=== PATIENT | male | born 1955 | race Caucasian/White ===

== ENCOUNTER 2016-11-01 06:00 | Inpatient (IN) | payer BC ==
[2016-09-29 13:52] VITALS: BMI 29.0
--- NOTE | 2016-09-29 14:35 | PAT Medication Instructions ---
Service Date Sep 29, 2016. Current Home Medication List Ibuprofen Tab (Advil), 200-600 MG PO QWEEK Medication Instructions For Your Scheduled Surgery - Hold the following medications the morning of surgery: Ibuprofen Tab (Advil), 200-600 MG PO QWEEK (not told to stop by surgeon- only takes occasionally) If you have any questions please call us at [phone] or [phone] ( Radha) or [phone]
--- NOTE | 2016-09-29 15:32 | DIAGNOSTIC IMAGING REPORT ---
CHEST 2 VIEWS ROUTINE HISTORY: Preop. COMPARISON: Chest 04/22/2015. FINDINGS: The lungs are clear. Cardiac silhouette is normal in size. No pleural effusions. No pneumothorax. IMPRESSION: No acute process. Electronically signed by: Sandoval Sun M.D. 09/29/2016 3:30 PM Dictated Date/Time: 09/29/2016 3:29 PM
[2016-09-29 15:58] LABS: BASO % 0.3 %; BASO ABS # 0.02 K/uL (0-0.2); COMPLETE YES; EOS % 1.9 %; HEMATOCRIT 44.1 % (42-52); IG% 0.2 %; LYMPH % 36.1 %; LYMPH ABS # 2.07 K/uL (1.2-3.4); MEAN CORPUSCULAR HEMOGLOBIN 30.4 pg (25-34); MEAN CORPUSCULAR HGB CONC 34.9 g/dl (32-36); MEAN PLATELET VOLUME 10.6 fL (7.4-10.4); MONO % 7.9 %; NEUT % 53.6 %; PLATELET COUNT 273 K/uL (130-400); RED BLOOD COUNT 5.07 M/uL (4.7-6.1); WHITE BLOOD COUNT 5.73 K/uL (4.8-10.8)
[2016-09-29 16:06] LABS: URINE APPEARANCE CLEAR (CLEAR); URINE BILIRUBIN NEG (NEG); URINE COLOR YELLOW; URINE NITRITE NEG (NEG); URINE PH 6.5 (4.5-7.5); URINE SPECIFIC GRAVITY 1.012 (1.000-1.030); UROBILINOGEN NEG (NEG)
[2016-09-29 16:07] LABS: MANUAL MICROSCOPIC REQUIRED? NO; REVIEW REQ? NO
[2016-09-29 16:08] LABS: INR 0.9 (0.9-1.1); PROTHROMBIN TIME (PATIENT) 10.1 SECONDS (9.0-12.0)
[2016-09-29 16:23] LABS: BUN/CREATININE RATIO 23.3 (10-20); CREATININE 0.97 mg/dl (0.60-1.40); POTASSIUM 4.2 mmol/L (3.5-5.1)
--- NOTE | 2016-10-02 18:46 | HISTORY & PHYSICAL EXAMINATION ---
DATE OF ADMISSION: 11/01/2016 CHIEF COMPLAINT: Left knee pain. HISTORY OF PRESENT ILLNESS: This 61-year-old white male presents for his preoperative history and physical. He is scheduled to undergo left knee total knee arthroplasty on 11/01/2016. He has had progressive left knee pain over the last several years. It has become worse over the last 5-6 months. No loss of motion. He does note some bowing of the leg, that has become worse with time. No numbness or tingling. No catching or locking. Pain is worse with weightbearing. It is affecting his ADLs. He previously had a right total knee arthroplasty and has done well with this. He elects to proceed with the same on the left. Preoperative x-rays have been obtained. PAST MEDICAL HISTORY: Significant for osteoarthritis, otherwise unremarkable. PREVIOUS SURGERIES: Right total knee arthroplasty April 2015. ALLERGIES: NKDA. CURRENT MEDICATIONS: None. Occasional Tylenol. FAMILY HISTORY: Noncontributory. 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 No tobacco use, occasional ETOH use. REVIEW OF SYSTEMS: Significant for above stated conditions, otherwise unremarkable. PHYSICAL EXAMINATION: GENERAL: Well-developed, well-nourished middle aged white male in no acute distress. Sitting on a bed. Alert and oriented. SKIN: Warm and dry with good turgor. No rashes or lesions. No ecchymosis or erythema. No intraarticular effusion. HEENT: Normocephalic, atraumatic. Eyes: PERRLA, EOMI. Nares patent bilaterally without turbinate enlargement. Oropharynx without erythema or exudate. No lesions noted. Uvula midline. Oral mucosa moist. Fair dentition. HEART: RRR. No MGR. LUNGS: Clear to auscultation bilaterally. No crackles, rhonchi or wheezing. Good air movement. ABDOMEN: Bowel sounds present x4, soft, nontender. No organomegaly. No masses. MUSCULOSKELETAL: Left knee has a varus stance. No intraarticular effusion. Essentially full terminal extension. Flexion to greater than 110 degrees. Strength is 5/5 with excellent quad tone. No defect in the patellar tendon or quadriceps tendon. Good patellar mobility. He has discomfort with palpation over the medial and lateral joint lines. Stable collateral ligaments. NEUROLOGIC: Gross sensation is intact across the upper and lower extremities by soft touch. Cranial nerves II-XII are intact. DATA: Radiographic images previously obtained show DJD of the left knee with varus stance. There is visible joint space narrowing, subchondral sclerosis, and periarticular osteophytes. IMPRESSION: Left knee end-stage degenerative joint disease. PLAN: Postoperative prescriptions for Percocet and Coumadin will be provided at discharge from the hospital. Informed written consent was obtained to proceed with left total knee arthroplasty. Anticipate discharge to home with outpatient PT. He will obtain medical clearance from Dr. Carolina. He already has a walker and crutches. Preoperative lab work, EKG, and chest x-ray have been ordered.
[2016-11-01] VITALS (8 sets, daily range): BP systolic 96–117; BP diastolic 60–78; PULSE 54–66; TEMP 36.5–36.8; O2SAT 94–100; Ht 177.8 cm; Wt 91.1 kg
[~2016-11-01] VITALS: Ht 177.8 cm; Wt 91.1 kg
[~2016-11-01 06:00] MED LIST: CEFAZOLIN 2000 MG/60 ML D5W 60 ML IV SCH; IBUP-103 PO; LACTATED RINGER'S 1000ML 1,000 ML IV SCH; LACTATED RINGER'S 1000ML IV SCH; LACTATED RINGER'S 500 ML IV SCH; ROPIVACAINE 5MG/ML 30 ML 150 MG, BUPIVACAINE/EPINEPHR 0.5% MPF 30 ML, KETOROLAC TROMETH... INFIL SCH; TRANEXAMIC ACID INJ 1,000 MG in SODIUM CHLORIDE 0.9% 100ML 100 ML IV SCH
--- NOTE | 2016-11-01 06:26 | History & Physical Bridge Note ---
H&P Re-Evaluation Bridge Note: I have examined the patient, reviewed the History & Physical and in the interval since the performance of the History & Physical I have noted the following changes of clinical significance: No changes noted
[2016-11-01] MEDS ORDERED: BUPIVACAINE 0.25% 30 ML VIAL ONE (07:00)
[2016-11-01] MEDS ORDERED: BUPIVACAINE 0.5 % 5 MG/1 ML PF 10ML VIAL ONE (07:00)
[2016-11-01] MEDS ORDERED: MIDAZOLAM HCL 1 MG/ML 2ML VIAL ONE ×2 (07:59→09:12)
[2016-11-01] MEDS ORDERED: FENTANYL CITRATE INJ 50 MCG/1 ML 2 ML VIAL ONE (07:59)
[2016-11-01] MEDS ORDERED: ATROPINE SULFATE 0.1 MG/ML 5ML SYR IV PRN (08:00)
[2016-11-01] MEDS ORDERED: ONDANSETRON INJ 2 MG/ML 2 ML VIAL IV PRN ×2 (08:00→10:30)
[2016-11-01] MEDS ORDERED: FENTANYL CITRATE INJ 50 MCG/1 ML 2 ML VIAL IV PRN (08:00)
[2016-11-01] MEDS ORDERED: EpHEDrine SULFATE INJ 50 MG/ML AMP IV PRN (08:00)
[2016-11-01] MEDS ORDERED: ORTHO JOINT ANESTHETIC ONE (08:28)
[2016-11-01] MEDS ORDERED: POVIDONE-IODINE OP SOLN 30 ML BTL ONE (08:29)
[2016-11-01] MEDS ORDERED: PROPOFOL IV EMULSION 10 MG/ML 20 ML VIAL IV ONE (09:15)
--- NOTE | 2016-11-01 10:15 | [facility] Post Operative Brief Note ---
Immediate Operative Summary Operative Date Nov 01, 2016. Pre-Operative Diagnosis Left knee end-stage degenerative joint disease Post-Operative Diagnosis Left knee end-stage degenerative joint disease Procedure(s) Performed Left knee total arthroplasty Surgeon Dr Baldo Ling Brewing Technician Surgeon(s) Darrius Prabhakar PA-C Estimated Blood Loss 50ML Findings severe medial and pfj djd flexion and varus deformity Fluids (cc crystalloids) 1400cc Specimens A: left knee bone and tissue Drains none Anesthesia spinal/block Complication(s) None Disposition Recovery Room / PACU
[2016-11-01] MEDS ORDERED: MoRPHine SULFATE 2 MG/ML CARP IV PRN (10:30)
[2016-11-01] MEDS ORDERED: DiphenhydrAMINE HCL 50 MG/ML VIAL IV PRN (10:30)
[2016-11-01] MEDS ORDERED: TAMSULOSIN HCL 0.4 MG CAP PO PRN (10:30)
[2016-11-01] MEDS ORDERED: METOCLOPRAMIDE HCL INJ 5 MG/ML 2 ML VIAL IV PRN (10:30)
[2016-11-01] MEDS ORDERED: BISACODYL 10 MG SUPP PR PRN (10:30)
[2016-11-01] MEDS ORDERED: MAGNESIUM HYDROXIDE SUSP 30 ML UDC PO PRN (10:30)
[2016-11-01] MEDS ORDERED: ACETAMINOPHEN 325 MG TAB PO PRN (10:30)
[2016-11-01] MEDS ORDERED: ALUMINUM/MAGNESIUM/SIMETH (MAALOX MAX) 30 ML UDC PO PRN (10:30)
[2016-11-01] MEDS ORDERED: ACETAMINOPHEN IV 100 ML IV PRN (10:30)
--- NOTE | 2016-11-01 10:52 | DIAGNOSTIC IMAGING REPORT ---
LEFT KNEE 1 view History: Left total knee arthroplasty. Degenerative arthritis. Postop. FINDINGS: Single AP view of the left knee. The patient is status post a left total knee arthroplasty. The hardware is intact. No fracture or dislocation. Skin albaro are in place. IMPRESSION: Left total knee arthroplasty. No evidence for hardware complication. Electronically signed by: Sandoval Sun M.D. 11/01/2016 10:50 AM Dictated Date/Time: 11/01/2016 10:50 AM
--- NOTE | 2016-11-01 11:21 | Anesthesiology Progress Note ---
Anesthesia Post Op Note Date & Time Nov 01, 2016 at 11:22 Vital Signs Pain Intensity: 0 Vital Signs Past 12 Hours Date Time Temp Pulse Resp B/P Pulse Ox O2 Delivery O2 Flow Rate FiO2 11/01/16 11:15 36.2 55 20 100/63 95 Nasal Cannula 2 11/01/16 11:00 52 17 97/62 95 Nasal Cannula 2 11/01/16 10:50 52 17 100/63 94 Nasal Cannula 2 11/01/16 10:40 55 17 99/63 97 Nasal Cannula 2 11/01/16 10:30 55 20 107/63 93 Nasal Cannula 2 11/01/16 10:22 36.3 59 12 106/63 97 Nasal Cannula 2 11/01/16 06:49 36.7 58 18 117/78 94 Room Air Notes Mental Status: alert / awake / arousable, participated in evaluation Pt Amnestic to Procedure: Yes Nausea / Vomiting: adequately controlled Pain: adequately controlled Airway Patency, RR, SpO2: stable & adequate BP & HR: stable & adequate Hydration State: stable & adequate Neuraxial Anesthesia: was administered, sensory block is resolving Anesthetic Complications: no major complications apparent
--- NOTE | 2016-11-01 11:26 | OPERATIVE REPORT ---
DATE OF OPERATION: 11/01/2016 PREOPERATIVE DIAGNOSIS: Left knee end-stage degenerative joint disease. POSTOPERATIVE DIAGNOSIS: Left knee same. PROCEDURE: Left knee total knee arthroplasty using DePuy implants. SURGEON: Dr. Ling. QUALITY PROJECT MANAGER: Cuauhtemoc Prabhakar PA-C. HISTORY OF PRESENT ILLNESS: This 61-year-old white male presented to the office with complaints of intractable left knee pain. He previously had a right total knee arthroplasty 2 years ago and has done very well with this. He elected to proceed with the same on the left. The left knee was causing difficulty with ADLs. He had tried conservative care measures without success. X-rays were obtained. OPERATION: The patient was administered a spinal anesthetic and then taken to the operating room where he was given sedation. He was prepped and draped in the usual sterile fashion. Please see Dr. Ling's operative report for specifics of the procedure. I was present for the entire case from initial patient positioning through final wound closure. Assistance was provided in tissue retraction, hemostasis, trial implant placement, final implant placement, and final wound closure. The patient was taken to the recovery room in satisfactory condition. I attest to the content of the Intraoperative Record and any orders documented therein. Any exceptio ns are noted below.
--- NOTE | 2016-11-01 11:40 | OPERATIVE REPORT ---
DATE OF OPERATION: 11/01/2016 SURGEON: Dr. Ling. AUTOPSY PATHOLOGIST: SIENNA High. SECOND AUTOPSY PATHOLOGIST: Med Ricky mcconnell. PREOPERATIVE DIAGNOSIS: Osteoarthritis left knee with varus and flexion deformity. POSTOPERATIVE DIAGNOSIS: Same. OPERATION PERFORMED: Cemented left total knee replacement. SUMMARY OF IMPLANTS: Size 4 posterior cruciate substituting femur, size 4 rotating tibial platform tray, size 4 spacer 12.5 mm thick, size 41 patella. Two bags of Palacos G cement. ESTIMATED BLOOD LOSS: 50 mL. CRYSTALLOID: Approximately 1400 mL. PERIOPERATIVE SITUATION: Medically cleared male with intractable knee pain, has flexion and varus deformity, wants to proceed with total knee replacement. PROCEDURE: The patient was properly identified, site verified, consent verified, 2 grams of Ancef confirmed as being given. The left lower extremity was prepped and draped in usual routine fashion. A gram of TXA was also given. Midline exposure utilized. Parapatellar arthrotomy performed. Synovectomy completed, osteophytes resected. Distal femur entered. Distal femur resected 14 mm, proximal tibia then delivered in the wound and the menisci excised. Appropriate soft tissue releases performed and 4 mm resected off the tibia. The extension gap was excellent. The femur was then sized between a 5 and 4, it was measured 5 cut 4. No notching occurred. The flexion gap was excellent. The box cut was then made and the size 4 fit well. A size 4 tibia was then broached and reamed and between a 10 and 12.5 spacer a 12.5 spacer gave a little additional mid-range stability to the flexion profile and did not eliminate any extension, so it was elected to use that. The patella tracked well. It was sized to a 41. It was resected leaving about 15 mm of bone. The peg holes were then drilled and the trial seated, it tracked well. All remaining trial elements were then removed. The wound irrigated with Pulsavac with Betadine. Re-pulsavaced it, Orthomix then injected and then the permanents cemented into position. After 12 minutes, the tourniquet deflated. After 14 minutes, the knee flexed. No cement required to be removed. The wound was irrigated with Betadine Pulsavac lavage. The permanent liner spacer seated and then the knee reduced and closed with #1 Ethibond, #1 Vicryl, 2-0 Vicryl and stainless steel clips. Appropriate soft tissue dressing applied. The patient transferred to recovery room in satisfactory condition having tolerated the procedure well. Deep venous thrombosis prophylaxis per protocol. I attest to the content of the Intraoperative Record and any orders documented therein. Any exceptio ns are noted below.
[2016-11-01] MEDS ORDERED: MoRPHine SULFATE 4 MG/ML 1 ML CARP\\VIAL IV PRN (12:15)
--- NOTE | 2016-11-01 12:22 | PROGRESS NOTE ---
DATE: 11/01/2016 SUBJECTIVE: Postop check status post left total knee replacement. The patient still has effects of spinal placement, starting to move his legs. Denies chest pain, shortness of breath, fever, chills, headache, nausea or vomiting. OBJECTIVE: Vital signs are stable. He is afebrile. Wound dressing clean, dry and intact. X-RAYS: AP and lateral of the knee reveal well-fixed, well-aligned knee replacement. ASSESSMENT AND PLAN: Continue care pathway. Overall, doing well status post left total knee replacement.
[2016-11-01] MEDS ORDERED: D5W AND 1/2NSS + 20MEQ KCL 1,000 ML IV SCH (12:30)
[2016-11-01] MEDS: FERROUS GLUCONATE 324 MG TAB PO SCH ×2 (13:36→17:52)
[2016-11-01] MEDS: KETOROLAC TROMETHAMINE 30 MG/ML VIAL IV. SCH ×2 (13:37→19:29)
[2016-11-01] MEDS ORDERED: WARFARIN SOD 5 MG TAB PO SCH (16:00)
[2016-11-01] MEDS: CEFAZOLIN IV 2,000 MG in DEXTROSE 5% 50ML 50 ML IV SCH ×2 (16:23→23:35)
[2016-11-01] MEDS ORDERED: TRANEXAMIC ACID INJ 1,000 MG in SODIUM CHLORIDE 0.9% 100ML 100 ML IV SCH (16:30)
[2016-11-01] MEDS: OXYCODONE HCL IR 5 MG TAB (IMMEDIATE RELEASE) PO PRN (17:55)
[2016-11-01] MEDS: DOCUSATE SODIUM 100 MG CAP PO SCH (20:35)
[2016-11-02] MEDS: KETOROLAC TROMETHAMINE 30 MG/ML VIAL IV. SCH ×2 (01:51→08:04)
[2016-11-02 03:32] VITALS: BP 103/62; PULSE 64; TEMP 36.5; O2SAT 95
[2016-11-02 07:08] LABS: HEMATOCRIT 37.2 % (42-52); MEAN CELL VOLUME 87.1 fL (80-100); MEAN CORPUSCULAR HEMOGLOBIN 30.7 pg (25-34); MEAN CORPUSCULAR HGB CONC 35.2 g/dl (32-36); MEAN PLATELET VOLUME 10.2 fL (7.4-10.4); PLATELET COUNT 217 K/uL (130-400); RED BLOOD COUNT 4.27 M/uL (4.7-6.1); WHITE BLOOD COUNT 12.87 K/uL (4.8-10.8)
--- NOTE | 2016-11-02 07:09 | PROGRESS NOTE ---
DATE: 11/02/2016 Postop day #1. At this point in time, the patient is very comfortable, is up ambulating and walking the hallways. Denies any chest pain, shortness of breath, fever, chills, headache, nausea or vomiting. Vital signs are stable, he is afebrile. Wound dressing clean, dry and intact. Abdomen soft, nontender. Calves nontender. Neurovascular check is normal. Wound dressing clean, dry and intact A.m. labs pending. ASSESSMENT: Overall, doing will discharge today after PT, OT. Coumadin prior to discharge per nomogram. If INR less than 1.8 discharge on 4 mg Coumadin daily. Check INR on Sunday.
--- NOTE | 2016-11-02 07:15 | DISCHARGE SUMMARY ---
CHIEF COMPLAINT: Left knee pain. HISTORY OF PRESENT ILLNESS: A 61-year-old male admitted for elective left total knee replacement. At this point in time, he is doing well and has no major issues with nausea, vomiting, chest pain, shortness of breath, fever, chills, headache. He is up ambulating in the hallway. He has no right thigh fever or pain. PAST MEDICAL HISTORY: Remarkable for osteoarthritis, otherwise unremarkable. PAST SURGICAL HISTORY: Includes right total knee arthroplasty in 04/2015. ALLERGIES: None. PREADMISSION MEDICATIONS: Include occasional Tylenol. DISCHARGE MEDICATIONS: Include p.r.n. narcotic of choice and Coumadin 4 mg daily if INR less than 1.8. Keep INR 1.8 to 2.2. FAMILY HISTORY: Not contributory. 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 No tobacco or alcohol use. REVIEW OF SYSTEMS: Reveals no pertinent findings. ASSESSMENT: Overall, doing well status post left total knee replacement. PLAN: To discharge today after PT, OT. Receive Coumadin prior to discharge for today per nomogram. Starting tomorrow take Coumadin in the evening 4 mg daily. Check INR on Sunday, adjust as needed. Follow up for outpatient PT ADONIS. MTDD
[2016-11-02 07:20] LABS: PROTHROMBIN TIME (PATIENT) 10.8 SECONDS (9.0-12.0)
[2016-11-02 07:30] VITALS: BP 103/61; PULSE 68; TEMP 36.9; O2SAT 97
[2016-11-02] MEDS ORDERED: DEXAMETHASONE INJ 10 MG in SYRINGE 0 ML IV SCH (07:30)
[2016-11-02 07:37] LABS: BUN/CREATININE RATIO 19.2 (10-20); CALCIUM 8.1 mg/dl (8.5-10.1); POTASSIUM 4.1 mmol/L (3.5-5.1)
[2016-11-02] MEDS: DOCUSATE SODIUM 100 MG CAP PO SCH (08:04)
[2016-11-02] MEDS: FERROUS GLUCONATE 324 MG TAB PO SCH (08:04)
--- NOTE | 2016-11-02 08:38 | Progress Note ---
Orthopedic SOAP Note Subjective Date of Service: Nov 02, 2016. Post OP Day: 1 Reports: feeling well, pain controlled w PO medications, Denies: SOB, calf pain , chest pain, complaints, light headedness, nausea / vomiting, using INFORMATION SECURITY SPECIALIST Objective calves soft nontender, N/V intact, capillary refill less than 2 sec., dressing C /D/I, incision C/D/I, A&O x3, toes mobile Date Time Temp Pulse Resp B/P Pulse Ox O2 Delivery O2 Flow Rate FiO2 11/02/16 07:30 36.9 68 16 103/61 97 Room Air 11/02/16 03:32 36.5 64 16 103/62 95 Room Air 11/01/16 23:45 Room Air 11/01/16 23:41 36.5 61 16 113/70 97 Room Air 11/01/16 18:53 36.6 66 18 113/72 97 Room Air 11/01/16 16:30 Nasal Cannula 2.0 11/01/16 14:36 36.5 58 16 104/65 97 2.0 11/01/16 13:30 36.5 56 16 106/69 98 Nasal Cannula 2.0 11/01/16 12:30 36.6 55 16 106/68 100 2.0 11/01/16 12:06 36.8 55 16 100/65 97 Nasal Cannula 2.0 11/01/16 11:35 36.6 54 16 96/60 96 Nasal Cannula 2.0 11/01/16 11:35 96 Nasal Cannula 2.0 11/01/16 11:35 Nasal Cannula 2.0 11/01/16 11:15 36.2 55 20 100/63 95 Nasal Cannula 2 11/01/16 11:00 52 17 97/62 95 Nasal Cannula 2 11/01/16 10:50 52 17 100/63 94 Nasal Cannula 2 11/01/16 10:40 55 17 99/63 97 Nasal Cannula 2 11/01/16 10:30 55 20 107/63 93 Nasal Cannula 2 11/01/16 10:22 36.3 59 12 106/63 97 Nasal Cannula 2 Laboratory Results 24 Hours: Test 11/02/16 06:55 Hematocrit 37.2 % Hemoglobin 13.1 g/dL Prothromb Time International Ratio 1.0 Prothrombin Time 10.8 SECONDS Assessment post op day 1 Left TKA Plan continue post op care DVT prophylaxis with Coumadin x 6 weeks with target INR 1.8-2.2 Will get 5mg of Coumadin prior discharge today going home on 4mg Coumadin and recheck INR Sunday pain control with prescribed meds PT/OT resume diet I changed dressing, incision looks great ice/elevate WBAT Left L.E. and walker Discharge home today with outpatient services F/u in 2 weeks at [facility] for staple removal
[2016-11-02] MEDS ORDERED: OXYC-57 PO (08:50)
[2016-11-02] MEDS ORDERED: WARF2TAB PO (08:50)
--- NOTE | 2016-11-02 08:52 | Discharge Instructions ---
Discharge Instructions Admission Reason for Admission: Left Knee Degenerative Joint Disease Discharge Discharge Diagnosis / Problem: Left knee s/p total knee replacement Discharge Goals Goal(s): Decrease discomfort, Improve function, Increase independence Activity Recommendations Activity Limitations: as noted below Lifting Limitations: gradually increase as tolerated Exercise/Sports Limitations: until after follow-up appointment Shower/Bathe: keep incision dry Driving or Machine Use: No driving until cleared by Dr. Ling Weightbearing Status: Left weightbearing (as tolerated) . Instructions / Follow-Up Instructions / Follow-Up New Medicine: * You will likely be taking one or more of these medications: 1. Percocet - Take, as directed, when you need it, every four to six hours to control your pain. 2. Iron Sulfate - Take three times each day for the month after surgery to help you replace the blood lost during surgery. 3. Coumadin - Thins your blood to lessen the chance of forming a blood clot. The dose of this is different for each person and is based on your blood tests that are done twice a week. * The most common side effects of pain medicine and iron are nausea and constipation. If nausea or constipation is too much of a problem or if you have any questions about your new medicines or doses, call [facility] at . We will try to help you manage these issues. VERY IMPORTANT TO READ AND REVIEW" Blood Clots and Blood Thinning Medicine: * You are given Coumadin during the immediate post-operative period to lessen the risk of blood clots forming in your legs and/or lungs. Coumadin is usually given for six weeks after surgery. * The prescription is for 2 mg tablets. At discharge, you should understand your dose and take it all at the same time every day, preferably after dinner. * You need to get your blood checked 1 - 2 times per week for six weeks or as directed. * If your dose needs to change, we will call you. Do not take your medication on the day of the blood test until we call you. Pain: * The immediate post-operative period after knee replacement surgery is often quite painful. * You are given a prescription for pain medicine. You should take it, as directed, when you need it, especially before physical therapy and before going to bed. Pain that interferes with sleep is very common and can last several months. * You will likely need pain medicine for the first four to six weeks. It will not stop all of the pain. The pain will lessen and as you feel better, you may change to milder pain medicine such as Tylenol. * The most common side effects of pain medicine are nausea and constipation, so don't take more than you need. Physical Therapy: * You will have physical therapy two or three times each week for four to six weeks after your surgery in order to regain your knee range of motion and to retrain your knee to work properly. * It is just as important to make sure you are getting your knee perfectly straight as it is to regain your knee bend. * Taking a pain pill an hour before therapy can help you have a more productive and comfortable therapy session if needed. Home Exercise: * You were shown a series of exercises (heel props, heel slides, etc.) in the hospital. Do these exercises three to four times each day including the exercises you were shown in physical therapy. Walking: * Get up and walk several times each day. For the first four weeks, try not to stand or walk for more than one hour at a time. If you do stand or walk for more than one hour, you will not hurt anything, but your knee and leg will likely swell. * As you feel comfortable, you may change from the walker or crutches to a cane and then to independent walking. SELF CARE INSTRUCTIONS AFTER TOTAL KNEE REPLACEMENT A. You may need to continue a physical therapy program after discharge from the hospital. There are several options available to you. Your doctor will assist you in selecting the best one for you. 1. An out-patient facility 2 to 3 times a week for therapy or home therapy. 2. Continue working on all exercises taught to you in the hospital. Your goals should be to increase bending of your knee to 90 degrees and beyond and to fully straighten your knee. B. You may progress at your own pace from walking with a walker or crutches to a cane; then to no assistive devices. C. Make walking a part of your daily routine. Be up as much as comfortable with rest periods throughout the day. Rest with leg elevation is very important. Use the ice wrap frequently for the first 3-4 weeks. D. There are no restrictions on activities. You may ride in a car, shop, participate in methodologist and all social activities. E. Wear the long elastic stockings (PHILIPP hose) 20 hours a day for six weeks after surgery. They can be removed several times a day for laundering and for a shower. F. Do not place a pillow behind your knee when resting. A pillow at your ankle is okay. VERY IMPORTANT TO READ AND REVIEW A. Take Coumadin, Aspirin or Lovenox (blood thinning medications) as directed by your doctor. If on Coumadin, have a pro-time (blood test) drawn according to your doctor's instructions. This will tell the doctor how well the Coumadin is thinning your blood. 1. YOU WILL BE GIVEN AN ORDER AT DISCHARGE FOR PT/INR (BLOOD WORK). PLEASE HAVE THIS DONE INSTRUCTED. PLEASE CALL OUR OFFICE AFTER YOUR BLOODWORK IS COMPLETE SO WE CAN TRACK YOUR RESULTS. IF YOU ARE GOING TO OUTPATIENT PHYSICAL THERAPY, YOU WILL NEED TO GO TO OUTPATIENT TESTING TO HAVE IT DRAWN. B. There are a few signs you need to watch for after you are home. Call [facility] if you notice any of the followin. Increased severe knee pain. Some pain is expected especially when you exercise. 2. Increased swelling in your leg or knee; pain or swelling of the calf muscle in either lower leg. 3. Any fluid drainage from the incision. 4. Shortness of breath or chest pain. C. Please call [facility] at if you have any concerns or questions about your operation or recovery. The doctor or his nurse will return your call promptly. D. You must take antibiotics before dental work, bladder, bowel or other surgery. Call the office to obtain a prescription at least 2 days prior to your appointment. * CALL IF INCREASED PAIN, REDNESS, DRAINAGE OR FEVER GREATER THAT 101. * Sutures should be removed 12-14 days after surgery unless you are on chronic steriods, then it will be 14-18 days after surgery. Call your doctor if: * Temperature above 101 degrees F. * Pain not relieved by pain medicine ordered. * Increased drainage or redness from incision. * Notify your doctor with any questions or concerns. Current Hospital Diet Patient's current hospital diet: Regular Diet Discharge Diet Recommended Diet: Regular Diet Procedures Procedures Performed: Left knee total arthroplasty Pending Studies Studies pending at discharge: no Medical Emergencies . Who to Call and When: Medical Emergencies: If at any time you feel your situation is an emergency, please call 911 immediately. . Non-Emergent Contact Non-Emergency issues call your: Primary Care Provider, Surgeon Call Non-Emergent contact if: temperature is above 100.5, wound has increased drainage, wound has increased redness, wound has increased pain, you have any medication questions . "Provider Documentation" section prepared by Cuauhtemoc Prabhakar PA-C. VTE Core Measure Inpt VTE Proph given/why not?: Warfarin (Coumadin), T.EBridger Stockings, SCD's [place] Drug Monitoring Program Search Results: patient reviewed within database, no issues identified
[2016-11-02] MEDS ORDERED: MULTIVITAMIN TAB PO SCH (09:00)
[2016-11-02] MEDS ORDERED: PANTOprazole SOD 40 MG TAB PO SCH (09:00)
[2016-11-02 10:09] VITALS: BP 103/61; PULSE 68; TEMP 36.9; O2SAT 97
[2016-11-02] MEDS: OXYCODONE HCL IR 5 MG TAB (IMMEDIATE RELEASE) PO PRN (10:48)
[2016-11-02] MEDS ORDERED: WARFARIN SOD 5 MG TAB PO SCH (12:00)
== END 2016-11-02 11:15 | disposition home or self-care (01) | DRG 470 ==
LOC: ENRESERVDT → ENRESERVTM → C.ACU 06:00 → C.3E 06:20
PROVIDERS: ADMIT Physical Medicine & Rehabilitation Sports Medicine; ATTEND Physical Medicine & Rehabilitation Sports Medicine
PROC: 0SRD0J9 Replacement of Left Knee Joint with Synthetic Substitute, Cemented, Open Approach (ICD-10-PCS; principal; 2016-11-01 08:45)
DX: M17.12 Unilateral primary osteoarthritis, left knee (principal); M21.162 Varus deformity, not elsewhere classified, left knee; M21.262 Flexion deformity, left knee; R73.03 Prediabetes; Z96.651 Presence of right artificial knee joint

== ENCOUNTER → 2016-12-18 | Outpatient (CLI) | payer BC ==
[~2016-12-18] MED LIST changes: -CEFAZOLIN 2000 MG/60 ML D5W 60 ML IV SCH; -IBUP-103 PO; -LACTATED RINGER'S 1000ML 1,000 ML IV SCH; -LACTATED RINGER'S 1000ML IV SCH; -LACTATED RINGER'S 500 ML IV SCH; +OXYC-57 PO; -ROPIVACAINE 5MG/ML 30 ML 150 MG, BUPIVACAINE/EPINEPHR 0.5% MPF 30 ML, KETOROLAC TROMETH... INFIL SCH; -TRANEXAMIC ACID INJ 1,000 MG in SODIUM CHLORIDE 0.9% 100ML 100 ML IV SCH; +WARF2TAB PO
== END | disposition home or self-care (01) ==
LOC: C.RDSM 07:30
PROVIDERS: ATTEND Physical Medicine & Rehabilitation Sports Medicine
DX: Z96.651 Presence of right artificial knee joint (principal); Z96.652 Presence of left artificial knee joint

== ENCOUNTER → 2017-09-24 | Outpatient (CLI) | payer OTHER ==
[~2017-09-24] MED LIST changes: +MULT-506 PO; +OMEG10007 PO; -OXYC-57 PO; -WARF2TAB PO
== END | disposition home or self-care (01) ==
LOC: C.RDSM 10:41
PROVIDERS: ATTEND Physical Medicine & Rehabilitation Sports Medicine
DX: Z96.651 Presence of right artificial knee joint (principal); Z96.652 Presence of left artificial knee joint

== ENCOUNTER → 2017-09-24 | Day surgery (SDC) | payer BC, OTHER ==
[2017-09-12 07:33] VITALS: Ht 177.8 cm; Wt 95.5 kg
[~2017-09-24] VITALS: Ht 177.8 cm; Wt 95.5 kg
[~2017-09-24] MED LIST changes: +LIDOCAINE HCL 2% 2 ML VIAL (20MG/ML) ONE; +PROPOFOL IV EMULSION 10 MG/ML 20 ML VIAL IV ONE; +SODIUM CHLORIDE 0.9% 500ML 500 ML IV ONE
[2017-09-24 12:39] VITALS: TEMP 36.6
--- NOTE | 2017-09-24 12:43 | Endo History and Physical ---
History & Physical Date of Service: Sep 24, 2017. Chief Complaint: Screening Referring Physician: Reagan Carolina History of Present Illness 62 yo CM who presents for screening colonoscopy. Past Medical History Arthritis Past Surgical History Hx Cardiac Surgery: No Hx Internal Defibrillator: No Hx Pacemaker: No Hx Abdominal Surgery: No Hx Post-Op Nausea and Vomiting: No Hx Cancer Surgery: No Hx Thoracic Surgery: No Hx Orthopedic: Yes (RT/LEFT TKA) Hx Urinary Tract Surgery: No Family History Colon CA, Polyp Social History Smoking Status: Never Smoker Hx Substance Use: No Hx Alcohol Use: Yes (5 GLASSES WINE PER WEEK ) Allergies Coded Allergies: No Known Allergies (Unverified , 09/12/17) Current Medications Reported Home Medications Medications Dose Route/Sig Max Daily Dose Days Date Category [place]-3 (Fish Oil) 1 Ea Cap 1 Cap PO DAILY 09/12/17 Reported Multivitamin (Multivitamins) Tab 1 Tab PO DAILY 09/12/17 Reported Vital Signs Weight (Kilograms): 95.45 Height (Feet): 5 Height (Inches): 10 Physical Exam General Appearance: WD/WN, no apparent distress Respiratory/Chest: Auscultation: breath sounds normal Cardiovascular: Heart Auscultation: RRR Abdomen: Bowel Sounds: normal Inspection & Palpation: soft, non-distended, no tenderness, guarding & rebound Assessment and Plan Assessment: 62 yo CM who presents for screening colonoscopy. Plan: Proceed with Colonoscopy.
--- NOTE | 2017-09-24 13:28 | Discharge Instructions ---
Endoscopy Patient Instructions Date / Procedure(s) Performed Sep 24, 2017. Colonoscopy Allergy Information Coded Allergies: No Known Allergies (Unverified , 09/12/17) Discharge Date / Findings Sep 24, 2017. Colon polyp Diverticulosis Internal hemorrhoids Medication Instructions OK to resume all medications today as prescribed Reported Home Medications Medications Dose Route/Sig Max Daily Dose Days Date Category [place]-3 (Fish Oil) 1 Ea Cap 1 Cap PO DAILY 09/12/17 Reported Multivitamin (Multivitamins) Tab 1 Tab PO DAILY 09/12/17 Reported Provider Instructions Activity Restrictions - No exercising or heavy lifting for 24 hours. - Do not drink alcohol the day of the procedure. - Do not drive a car or operate machinery until the day after the procedure. - Do not make any important decisions or sign important papers in 24 hours after the procedure. Following Day: - Return to full activity which may include returning to work/school. Diet Start your diet with liquids and light foods (jello, soup, juice, toast). Then eat your usual diet if not nauseated. Treatment For Common After Affects For mild abdominal pain, bloating, or excessive gas: - Rest - Eat lightly - Lie on right side Follow-Up Information Follow-up with Reagan Carolina as scheduled Anesthesia Information What You Should Know You have had a procedure that required some medicine to reduce anxiety and discomfort. This treatment is called moderate sedation. After receiving the treatment, you may be sleepy, but you will be able to breathe on your own. The effects of the treatment may last for several hours. Follow these instructions along with Activity/Diet recommendations noted above: * Do NOT do anything where dizziness or clumsiness would be dangerous. * Rest quietly at home today, then you can be up and about tomorrow. * Have a responsible person stay with you the rest of today. * You may have had an I.V. today. If so, you may take the dressing off later today. Recommendations Call your doctor if: * Trouble breathing * Continuous vomiting for more than 24 hours * Temperature above 101 degrees * Severe abdominal pain or bloating * Pain not relieved by pain medicine ordered * There is increased drainage or redness from any incision * A large amount of rectal bleeding greater than 2-3 tablespoons. (If you had a polyp/s removed or have hemorrhoids, a small amount of blood - from the rectum is to be expected.) * You have any unanswered questions or concerns. IN THE EVENT OF A SERIOUS EMERGENCY, GO TO THE NEAREST EMERGENCY ROOM Your discharge instructions were prepared by provider Paul Willingham. Patient Instructions Signature Page Dieudonne Lino Patient (or Guardian) Signature/Date: I have read and understand the instructions given to me by my caregivers. Caregiver/RN/Doctor Signature/Date: The above-named patient and/or guardian has received patient instructions on this date. + Original Patient Signature Page (only) stays with chart. Please make copy for patient.
--- NOTE | 2017-09-24 13:37 | GI REPORT ---
Procedure Date: 09/24/2017 12:39 PM Procedure: Colonoscopy Indications: Family history of colon cancer in multiple first-degree relatives Medicines: Monitored Anesthesia Care Complications: No immediate complications. Estimated Blood Loss: Estimated blood loss: none. Procedure: Pre-Anesthesia Assessment: - Prior to the procedure, a History and Physical was performed, and patient medications and allergies were reviewed. The patient's tolerance of previous anesthesia was also reviewed. The risks and benefits of the procedure and the sedation options and risks were discussed with the patient. All questions were answered, and informed consent was obtained. Prior Anticoagulants: The patient has taken no previous anticoagulant or antiplatelet agents. ASA Grade Assessment: II - A patient with mild systemic disease. After reviewing the risks and benefits, the patient was deemed in satisfactory condition to undergo the procedure. After I obtained informed consent, the scope was passed under direct vision. Throughout the procedure, the patient's blood pressure, pulse, and oxygen saturations were monitored continuously. The scope was introduced through the anus and advanced to the terminal ileum. The colonoscopy was performed without difficulty. The patient tolerated the procedure well. The quality of the bowel preparation was good. The terminal ileum, ileocecal valve, appendiceal orifice, and rectum were photographed. Findings: The perianal and digital rectal examinations were normal. A 3 mm polyp was found in the descending colon. The polyp was removed with a cold biopsy forceps. Resection and retrieval were complete. Scattered small-mouthed diverticula were found in the entire colon. Non-bleeding internal hemorrhoids were found during retroflexion. The hemorrhoids were small. Impression: - One 3 mm polyp in the descending colon, removed with a cold biopsy forceps. Resected and retrieved. - Diverticulosis in the entire examined colon. - Non-bleeding internal hemorrhoids. Recommendation: - Resume previous diet. - Continue present medications. - Repeat colonoscopy for surveillance based on pathology results. - Return to primary care physician as previously scheduled. Paul Willingham, DO 09/24/2017 1:37:19 PM This report has been signed electronically. Note Initiated On: 09/24/2017 12:39 PM I attest to the content of the Intraoperative Record and orders documented therein, exceptions below
--- NOTE | 2017-09-24 13:45 | Anesthesiology Progress Note ---
Anesthesia Post Op Note Date & Time Sep 24, 2017 at 13:44 Vital Signs Pain Intensity: 0 Vital Signs Past 12 Hours Date Time Temp Pulse Resp B/P (MAP) Pulse Ox O2 Delivery O2 Flow Rate FiO2 09/24/17 13:35 64 18 117/85 (96) 97 Room Air 09/24/17 13:20 65 16 102/61 (75) 96 Room Air 09/24/17 12:39 36.6 61 18 131/73 (92) 94 Room Air Notes Mental Status: alert / awake / arousable, participated in evaluation Pt Amnestic to Procedure: Yes Nausea / Vomiting: adequately controlled Pain: adequately controlled Airway Patency, RR, SpO2: stable & adequate BP & HR: stable & adequate Hydration State: stable & adequate Anesthetic Complications: no major complications apparent
[2017-09-24 13:50] VITALS: BP 115/81; PULSE 52; O2SAT 98
== END | disposition home or self-care (01) ==
LOC: C.GI 12:19
PROVIDERS: ATTEND Internal Medicine
DX: Z12.11 Encounter for screening for malignant neoplasm of colon (principal); D12.4 Benign neoplasm of descending colon; K57.90 Diverticulosis of intestine, part unspecified, without perforation or abscess without bleeding; K64.8 Other hemorrhoids; Z80.0 Family history of malignant neoplasm of digestive organs; Z96.653 Presence of artificial knee joint, bilateral